=== PATIENT | female | born 1960 ===

== ENCOUNTER 2023-02-03 09:30 | Day surgery (SDC) | payer OTHER ==
[~2023-02-03] VITALS: Ht 144.8 cm; Wt 68.0 kg
[~2023-02-03 09:30] MED LIST: ALENDRONATE SOD70 MG PO; AMBIEN5 MG PO; ATIVAN1 M1 PO; ATORVASTATIN CA40 MG PO; CALCIUM280 MG PO; DICYCLOMINE HYD10 MG PO; IBUPROFEN200 MG PO; IRON325 M1 PO; LEVOTHYROXIN50 MCG PO; OMEPRAZOLE DR40 MG PO; TOPROL XL25 M1 PO; TRINTELLIX10 MG PO
[2023-02-03 12:28] VITALS: BP 117/62
== END 2023-02-03 12:20 | disposition home or self-care (01) ==
LOC: ORM 09:30
PROVIDERS: ATTEND Internal Medicine Gastroenterology
DX: K29.70 Gastritis, unspecified, without bleeding (principal); K44.9 Diaphragmatic hernia without obstruction or gangrene; K31.9 Disease of stomach and duodenum, unspecified; K22.70 Barrett's esophagus without dysplasia; K21.9 Gastro-esophageal reflux disease without esophagitis; K58.0 Irritable bowel syndrome with diarrhea; Z91.199 Patient's noncompliance with other medical treatment and regimen due to unspecified reason; Z86.010 Personal history of colon polyps